=== PATIENT | male | born 1995 | race Caucasian/White ===

== ENCOUNTER 2024-12-14 08:40 | Emergency (ER) | payer OTHER ==
[~2024-12-14] VITALS: Ht 165.1 cm; Wt 74.8 kg
[2024-12-14 08:47] VITALS: TEMP 98.1
[2024-12-14] MEDS ORDERED: TDAP [DIPH/PERTUSSIS/TET] 0.5 ML VIAL IM ONE (09:33)
[2024-12-14] MEDS: TDAP [DIPH/PERTUSSIS/TET] 0.5 ML VIAL IM ONE (09:44)
[2024-12-14] MEDS ORDERED: LET SOLN TOPICAL 8 ML UDC TP ONE (10:19)
[2024-12-14] MEDS ORDERED: LIDOCAINE/PRILOCAINE (5GM) 5 GM TUBE TP ONE (11:09)
[2024-12-14] MEDS ORDERED: LIDOCAINE 1% INJ 50 ML MDV IJ ONE (11:09)
[2024-12-14] MEDS: LIDOCAINE/PRILOCAINE (5GM) 5 GM TUBE TP ONE (11:10)
[2024-12-14] MEDS: LIDOCAINE HCL/PF 1% 30 ML VIAL TP ONE (11:10)
[2024-12-14 12:23] VITALS: BP 128/76; O2SAT 99
== END 2024-12-14 12:21 | disposition home or self-care (01) ==
LOC: ER 08:59
DX: S61.411A Laceration without foreign body of right hand, initial encounter (principal); S31.31XA Laceration without foreign body of scrotum and testes, initial encounter; X58.XXXA Exposure to other specified factors, initial encounter; Y93.89 Activity, other specified; Y92.89 Other specified places as the place of occurrence of the external cause; Y99.8 Other external cause status
CPT/HCPCS: 12002; 73130; 76870; 90471; 90715; 99285; A6403; J3490

== ENCOUNTER 2024-12-21 12:53 | Emergency (ER) | payer OTHER ==
[~2024-12-21] VITALS: Ht 165.1 cm; Wt 74.8 kg
[2024-12-21 13:09] VITALS: BP 135/69; TEMP 98; O2SAT 99
== END 2024-12-21 13:12 | disposition home or self-care (01) ==
LOC: ER 12:55
DX: S61.411D Laceration without foreign body of right hand, subsequent encounter (principal); Z48.02 Encounter for removal of sutures; W18.39XD Other fall on same level, subsequent encounter